=== PATIENT | female | born 1965 | race Caucasian/White ===

== ENCOUNTER 2017-03-02 10:53 | Inpatient (IN) | payer MEDICARE, MEDICAID ==
[~2017-03-02] VITALS: Ht 162.6 cm; Wt 70.8 kg
[2017-03-02] VITALS (530 sets, daily range): BP systolic 132–171; BP diastolic 89–119; PULSE 64–100; TEMP 97–98.3; O2SAT 80–100
[~2017-03-02 10:53] MED LIST: ABILIFY5 MG PO; ATIVAN 0.50.5 MG/TAB PO; CATAPRES 0.1MG0.1 MG PO; CYMBALTA 60MG60 MG PO; DESYREL DIVIDO300 MG PO; FLEXERIL 1010 MG/TAB PO; LAMICTAL 25MG T25 MG PO; LASIX 40MG TABL40 MG PO; MEDROL 4MG DOSPA4 MG PO; NORCO 325 MG-51 TAB PO; PRINZIDE 12.5 M1 TA1 PO; SEROQUEL 1100 MG/TAB PO; WELLBUTRIN 75MG75 MG PO; WELLBUTRIN XL300 M1 PO; ZESTRIL 20MG TA20 MG PO; ZESTRIL 5MG5 MG PO
[2017-03-02 11:15] LABS: BASO # 0.1 (0.0-0.2); BASO % 1.3 % (0.0-2.0); EOS # 0.1 (0.0-0.7); EOS % 2.4 % (0-4.0); GRAN # 2.2 (1.4-6.5); GRAN % 59.3 % (42.2-75.2); HEMATOCRIT 39.1 % (37.0-47.0); HEMOGLOBIN 13.4 g/dl (12.5-16.0); LYMPH % 27.4 % (20.0-51.0); MEAN CELL VOLUME 95 fl (80.0-100.0); MEAN CORPUSCULAR HEMOGLOBIN 33 pg (27.0-31.0); MEAN CORPUSCULAR HGB CONC 34 g/dl (33.0-37.0); MEAN PLATELET VOLUME 9.4 fl (7.4-10.4); MONO # 0.4 (0.1-0.6); MONO % 9.3 % (1.7-9.3); PLATELET COUNT 158 K/mm3 (130-400); RED BLOOD COUNT 4.11 M/mm3 (4.10-5.30); REDCELL DISTRIBUTION WIDTH-CV 14.1 % (11.5-14.5); WHITE BLOOD COUNT 3.8 K/mm3 (4.8-10.8)
[2017-03-02 11:23] LABS: PH 5 (5-8); SQUAMOUS EPITHELIAL 0-2 /hpf; URINE APPEARANCE Hazy; URINE BACTERIA Rare /hpf; URINE BILIRUBIN Negative (NEGATIVE); URINE BLOOD 1+ (NEGATIVE); URINE COLOR Yellow; URINE GLUCOSE 1+ (NEGATIVE); URINE KETONE Trace (NEGATIVE); URINE RBC 0-2 /hpf; URINE WBC 0-2 /hpf
[2017-03-02 11:25] LABS: AMPHETAMINE URINE NEGATIVE; BARBITURATES URINE NEGATIVE; BENZODIAZEPINES URINE POSITIVE; BUPRENORPHINE URINE NEGATIVE; METHADONE URINE NEGATIVE; OPIATES URINE NEGATIVE; OXYCODONE URINE NEGATIVE; PHENCYCLIDINE URINE NEGATIVE; PROPOXYPHENE URINE NEGATIVE; THC CANNABINOIDS URINE POSITIVE
[2017-03-02 11:30] LABS: ADJUSTED CALCIUM 8.8 mg/dL (8.4-10.2); ALANINE AMINOTRANSFERASE 42 U/L (9-52); ALBUMIN 4.4 gm/dL (3.5-5.0); ALKALINE PHOSPHATASE 96 U/L (50-136); ANION GAP 14 mmol/L (7-16); BILIRUBIN,TOTAL 0.8 mg/dL (0.0-1.0); BLOOD UREA NITROGEN 10 mg/dL (7-17); C-REACTIVE PROTEIN 1.2 mg/dL (0.0-0.9); CALCIUM 9.1 mg/dL (8.4-10.2); CARBON DIOXIDE 22 mmol/L (22-30); CHLORIDE 107 mmol/L (98-107); CREATININE, serum 0.76 mg/dL (0.52-1.25); GLUCOSE 116 mg/dL (74-106); POTASSIUM 3.4 mmol/L (3.4-5.0); SODIUM 143 mmol/L (137-145); TOTAL PROTEIN 7.2 gm/dL (6.4-8.2)
[2017-03-02 11:31] LABS: ACETAMINOPHEN < 10 ug/mL (10-30); SALICYLATE < 1.0 mg/dL
[2017-03-02] MEDS ORDERED: ATIVAN 0.50.5 MG/TAB PO (14:06)
[2017-03-02] MEDS ORDERED: NORCO 325 MG-101 TAB PO (14:06)
[2017-03-03] VITALS (967 sets, daily range): BP systolic 122–174; BP diastolic 78–110; PULSE 35–87; TEMP 97–99; O2SAT 79–100
[2017-03-03 05:51] LABS: ADJUSTED CALCIUM 8.6 mg/dL (8.4-10.2); ALBUMIN 3.9 gm/dL (3.5-5.0); BILIRUBIN,TOTAL 0.8 mg/dL (0.0-1.0); CALCIUM 8.5 mg/dL (8.4-10.2); CREATININE, serum 0.63 mg/dL (0.52-1.25); MAGNESIUM 1.8 mg/dL (1.6-2.3); PHOSPHOROUS 2.4 mg/dL (2.5-4.5); POTASSIUM 3.1 mmol/L (3.4-5.0); TOTAL PROTEIN 6.4 gm/dL (6.4-8.2)
[2017-03-04 03:48] VITALS: BP 116/92; PULSE 77; TEMP 97.8
[2017-03-04 07:54] LABS: BASO % 0.8 % (0.0-2.0); EOS # 0.1 (0.0-0.7); EOS % 3.7 % (0-4.0); GRAN % 51.6 % (42.2-75.2); LYMPH # 1.4 (1.2-3.4); LYMPH % 37.3 % (20.0-51.0); MEAN CELL VOLUME 97 fl (80.0-100.0); MEAN CORPUSCULAR HGB CONC 34 g/dl (33.0-37.0); MEAN PLATELET VOLUME 9.7 fl (7.4-10.4); MONO # 0.2 (0.1-0.6); MONO % 6.1 % (1.7-9.3); PLATELET COUNT 147 K/mm3 (130-400); RED BLOOD COUNT 3.63 M/mm3 (4.10-5.30); REDCELL DISTRIBUTION WIDTH-CV 14.2 % (11.5-14.5); WHITE BLOOD COUNT 3.8 K/mm3 (4.8-10.8)
[2017-03-04 07:55] LABS: HEMATOCRIT 35.1 % (37.0-47.0); HEMOGLOBIN 11.9 g/dl (12.5-16.0); MEAN CORPUSCULAR HEMOGLOBIN 33 pg (27.0-31.0)
[2017-03-04 08:01] LABS: ADJUSTED CALCIUM 9.3 mg/dL (8.4-10.2); BILIRUBIN,TOTAL 0.6 mg/dL (0.0-1.0); CALCIUM 9.3 mg/dL (8.4-10.2); CREATININE, serum 0.68 mg/dL (0.52-1.25); TOTAL PROTEIN 6.6 gm/dL (6.4-8.2)
[2017-03-04 08:07] LABS: POTASSIUM 2.8 mmol/L (3.4-5.0)
[2017-03-04 08:15] VITALS: BP 148/94; PULSE 72; TEMP 98.3
[2017-03-04 12:46] VITALS: BP 146/95; PULSE 62; TEMP 98.1
[2017-03-04] MEDS ORDERED: DUO-KAPS1 CAP PO (14:12)
[2017-03-04] MEDS ORDERED: K-TAB20 PO (14:16)
[2017-03-04] MEDS ORDERED: LOPRESSOR 225 MG/TAB PO (14:16)
[2017-03-04] MEDS ORDERED: THIAMINE 1100 MG/TAB PO (14:16)
== END 2017-03-04 14:36 | disposition home or self-care (01) | DRG 897 ==
LOC: COL.ER 10:53 → MEDICAL 12:54 → ICU 12:54 → MEDICAL 03-03 21:06
PROVIDERS: Emergency Medicine; Family Medicine
DX: F10.231 Alcohol dependence with withdrawal delirium (principal); F33.1 Major depressive disorder, recurrent, moderate; E87.6 Hypokalemia; I10 Essential (primary) hypertension; M54.2 Cervicalgia; F43.11 Post-traumatic stress disorder, acute; F17.210 Nicotine dependence, cigarettes, uncomplicated; Y90.0 Blood alcohol level of less than 20 mg/100 ml
CPT/HCPCS: 90791-AI; 99223-AI; 99233-AI; 99239; A4315; J1650; J2060; J3411; J3486; J7030

== ENCOUNTER → 2017-08-24 | Outpatient (CLI) | payer MEDICARE, MEDICAID ==
[~2017-08-24] MED LIST changes: +B-121000 MCG PO; +CARAFATE S1 GM/10 ML PO; +DUO-KAPS1 CAP PO; +FOLIC ACID 11 MG/TA1 PO; +K-TAB20 PO; +KLONOPIN 1MG1 MG PO; +LOPRESSOR 225 MG/TAB PO; +NORCO 325 MG-101 TAB PO; +NORCO 325 MG-7.1 TAB PO; +NORVASC 10MG10 MG PO; +PROTONIX 40MG T40 MG PO; +REMERON 15M15 MG/TA1 PO; +THIAMINE 1100 MG/TAB PO
== END ==
LOC: BHSO 11:03
DX: F41.1 Generalized anxiety disorder (principal)
CPT/HCPCS: G0463